=== PATIENT | female | born 1965 | race Caucasian/White ===

== ENCOUNTER 2017-06-14 14:01 | Emergency (ER) | payer MEDICAID ==
[~2017-06-14] VITALS: Ht 165.1 cm; Wt 55.0 kg
[~2017-06-14 14:01] MED LIST: CEFU1TAB43 PO; CITA20 PO; CYCL-36 PO; DIAZ10TA PO; DILA2TAB4 PO; FIORTAB4 PO; NEUR600T PO; OXYC30TA PO; PRAV40 PO; PRED20 PO; SALM50I INH; STOO100T PO; TUSSSUS PO
[2017-06-14 14:18] VITALS: BP 92/52; PULSE 70; RESP 18; TEMP 97.8; O2SAT 95
[2017-06-14 15:36] LABS: BACTERIA, URINE RARE /hpf; BILIRUBIN, URINE NEG (NEG); BLOOD, URINE LARGE (NEG); GLUCOSE,URINE NEG (NEG); KETONE, URINE 10 mg/dL (NEG); MUCUS URINE FEW /lpf (OCC); NITRITE,URINE POS (NEG); SQUAMOUS EPITHELIAL CELL URINE 8 /hpf (0-5); URINE LEUKOCYTE ESTERASE NEG (NEG)
[2017-06-14 15:37] LABS: URINE COLOR RED (YELLW/STRAW)
[2017-06-14] MEDS ORDERED: LIDOCAINE HCL 1% 50 ML VIAL IM ONE (18:00)
[2017-06-14] MEDS ORDERED: PHEN0.4T PO (18:05)
[2017-06-14] MEDS ORDERED: CEPH-460 PO (18:05)
--- NOTE | 2017-06-14 18:10 | PD ---
HPI Chief Complaint: Complaint Time Seen by Provider: 17:59 Travel History International Travel<30 days: No Contact w/Intl Traveler<30days: No Traveled to known affect area: No History of Present Illness HPI 51-year-old female presents to the emergency department with complaint of blood in her urine since last night. Denies dysuria, urinary frequency. Reports urinary hesitancy today. Reports subjective fever 2 days ago, but none yesterday or today. Denies abdominal pain, vomiting. Denies flank pain, back pain. Denies history of kidney stones. Denies abnormal vaginal discharge, odor. Has not taken any medications or try any treatments to alleviate her symptoms. No known aggravating or relieving factors. Allergies to aspirin and codeine. No primary care provider. History of COPD and seasonal allergies. Has no other medical complaints. No other modifying factors or associated signs or symptoms. PFSH Past Medical History Asthma: Yes Anxiety: Yes Cancer: No Cardiovascular Problems: No Congestive Heart Failure: No COPD: Yes Cerebrovascular Accident: Yes (TIA x 2) Coronary Artery Disease: No Diabetes: No Diminished Hearing: No Gastrointestinal Disorders: Yes (CHRONIC CONSTIPATION) Glaucoma: No Hepatitis: No Hiatal Hernia: No Hypertension: No Medical other: Yes (PREVIOUS ULCER) Musculoskeletal: Yes (BULGING DISCS IN BACK) Neurologic: Yes Respiratory: Yes (End Stage COPD & Enphysema) Immunizations Current: Yes Pneumonia: Yes Thyroid Disease: No Ulcer: Yes Tetanus Vaccination: > 5 Years ?: Not LMP: Does not get periods Ectopic : Yes (LEFT OOPRECTOMY) Tubal Ligation: Yes Past Surgical History Abdominal Surgery: No Appendectomy: No Cardiac Surgery: No Cholecystectomy: No Ear Surgery: No Endocrine Surgery: No Eye Surgery: No Genitourinary Surgery: No Gynecologic Surgery: Yes (LT FALLOPIAN TUBE, RT OVARY REMOVED 12 YRS AGO) Oral Surgery: No Pacemaker: No Thoracic Surgery: No Tonsillectomy: Yes Other Surgery: Yes Social History Alcohol Use: No Tobacco Use: Yes (1 ppd) Substance Use: Yes (MARIJUANA) Allergies-Medications (Allergen,Severity, Reaction): Coded Allergies: aspirin (Unverified Allergy, Severe, HIVES, 06/14/17) codeine (Unverified Allergy, Severe, Nausea/Vomiting, 06/14/17) Reported Meds & Prescriptions Reported Meds & Active Scripts Active Review of Systems Except as stated in HPI: all other systems reviewed are Neg Physical Exam Narrative GENERAL: Well-nourished, well-developed female patient, in no acute distress; afebrile, nontoxic-appearing SKIN: Warm and dry. No rash. HEAD: Atraumatic. Normocephalic. EYES: Pupils equal and round. No scleral icterus. No injection or drainage. ENT: Mucosa pink and moist. NECK: Trachea midline. CARDIOVASCULAR: Regular rate. RESPIRATORY: No accessory muscle use. GASTROINTESTINAL: Abdomen soft, non-tender, nondistended. Hepatic and splenic margins not palpable. Bowel sounds are active 4 quadrants. Bladder nontender and distended. MUSCULOSKELETAL: No obvious deformities. No clubbing. No cyanosis. No edema. BACK: No CVA tenderness NEUROLOGICAL: Awake and alert. Oriented 3. No obvious cranial nerve deficits. Motor grossly within normal limits. Normal speech. Moves all extremities. 5/5 strength to all extremities. PSYCHIATRIC: Appropriate mood and affect; insight and judgment normal. Data Data Last Documented VS Vital Signs Date Time Temp Pulse Resp B/P (MAP) Pulse Ox O2 Delivery O2 Flow Rate FiO2 06/14/17 14:18 97.8 70 18 92/52 (65) 95 Orders Orders Urinalysis - C+S If Indicated (06/14/17 15:05) Urine Culture (06/14/17 14:32) Lidocaine 1% Inj (50 Ml) (Xylocaine 1% I (06/14/17 18:00) Ceftriaxone Inj (Rocephin Inj) (06/14/17 18:00) Labs Laboratory Tests Test 06/14/17 14:32 Urine Color RED Urine Turbidity HAZY Urine pH 6.0 Urine Specific [place] 1.016 Urine Protein 30 mg/dL Urine Glucose (UA) NEG mg/dL Urine Ketones 10 mg/dL Urine Occult Blood LARGE Urine Nitrite POS Urine Bilirubin NEG Urine Urobilinogen 2.0 MG/DL Urine Leukocyte Esterase NEG Urine RBC /hpf Urine WBC 27 /hpf Urine Squamous Epithelial Cells 8 /hpf Urine Bacteria RARE /hpf Urine Mucus FEW /lpf Microscopic Urinalysis Comment CULTURE INDICATED MDM Medical Decision Making Medical Screen Exam Complete: Yes Emergency Medical Condition: Yes Medical Record Reviewed: Yes Differential Diagnosis UTI, pyelonephritis, bladder cancer, nephrolithiasis Narrative Course 51-year-old female with complaint of blood in her urine since last night. Her only complaint is urine hesitancy. She does have bladder tenderness and distention on exam. Otherwise exam is unremarkable. No CVA tenderness. Urinalysis with signs of infection and hematuria. Denies history of kidney stones. Rocephin administered in the ER. Instructed patient to follow-up with urologist. Keflex and Pyridium prescribed for home. Instructed patient to follow up with primary care provider. Patient verbalizes understanding and agreement with treatment plan. Patient is medically cleared and stable for discharge. Discussed reasons to return to the emergency department. Patient agrees with treatment plan. The patients vital signs are stable and the patient is stable for outpatient follow-up and treatment. Patient discharged home, stable and in no acute distress. Diagnosis Primary Impression: Urinary tract infection Qualified Codes: N39.0 - Urinary tract infection, site not specified; R31.9 - Hematuria, unspecified Referrals: Primary Care Physician Urologist Patient Instructions: General Instructions, Hematuria (ED), Urinary Tract Infection in Women (ED) Additional Instructions: Take antibiotics as prescribed and complete full course Take Pyridium for bladder spasms: Pyridium will turn your urine bright orange Drink plenty of fluids Maintain good personal hygiene Follow-up with primary care provider Return to the emergency department immediately with worsening of symptoms Med/Other Pt SpecificInfo: Prescription(s) given Scripts Cephalexin (Keflex) 500 Mg Cap 500 MG PO Q12H for Infection for 7 Days, #14 CAP 0 Refills Prov: Mary Marsh 06/14/17 Phenazopyridine (Pyridium) 100 Mg Tab 100 MG PO Q8H Y for DYSURIA for 3 Days, #9 TAB 0 Refills Prov: Mary Marsh 06/14/17 Disposition: 01 DISCHARGE HOME Condition: Stable Mary Marsh Jun 14, 2017 18:10
== END 2017-06-14 18:52 | disposition home or self-care (01) ==
LOC: NEPK 14:01
DX: N39.0 Urinary tract infection, site not specified (principal); R31.9 Hematuria, unspecified; F17.200 Nicotine dependence, unspecified, uncomplicated; F12.90 Cannabis use, unspecified, uncomplicated
CPT/HCPCS: 81001; 87086; 96372; 99283; J0696

== ENCOUNTER → 2017-08-10 | Day surgery (SDC) | payer MEDICAID ==
[~2017-08-10] VITALS: Ht 154.9 cm; Wt 52.1 kg
[~2017-08-10] MED LIST changes: +*MEPERIDINE 25 MG INJ VIAL PERIprocedural Use ONLY ONE; +*PROMETHAZINE 25 MG/ML VIAL PERIprocedural use ONLY ONE; +*morphine SULFATE 8 MG/ML PERIprocedure ONLY ONE; +AMPICILLIN 1 GM/NS 100 ML IV SCH; +BACT800T5 PO; +BELLADONNA ALKALOIDS/OPIUM 60 MG SUPP RECTAL ONE; +BUTA1CAP PO; -CEFU1TAB43 PO; +CELE40TA PO; +CHLORHEXIDINE GLUCONATE 2 % 1 PACK (2 CLOTHS) TOPICAL PRN; -CITA20 PO; -CYCL-36 PO; +CYCL10TA PO; +DEXAMETHASONE SOD PHOS 4 MG/ML VIAL IV ONE; +DIAZ10 PO; -DIAZ10TA PO; -DILA2TAB4 PO; +DO NOT ADM ANY ANTICOAGULANT DRUGS PRN; -FIORTAB4 PO; +GABA600T PO; +GENTAMICIN INJ 240 MG in SODIUM CHLORIDE 0.9% INJ 100 ML IV SCH; +HYDROmorphone HCL PF 0.5 MG/0.5 ML SYRINGE IV PRN; +KETAMINE HCL 50 MG/5 ML SYRINGE ONE; +LACTATED RINGER'S 1000 ML INJ 1,000 ML IV ONE; +LACTATED RINGER'S 1000 ML IV PRN; +LIDOCAINE HCL 1% PF 5 ML SYRINGE OTHER ONE; +METOPROLOL TARTRATE 25 MG TAB PO PRN; +MIDAZOLAM HCL 2 MG/2 ML VIAL ONE; +MORP20SO2 PO; +MULT-65 PO; -NEUR600T PO; +OMEP40CA2 PO; +ONDANSETRON HCL 4 MG/2 ML VIAL IV ONE; +ONDANSETRON HCL 4 MG/2 ML VIAL IV PUSH PRN; +ONDANSETRON HCL 4 MG/2 ML VIAL ONE; +POVIDONE IODINE 5% (ANTISEPSIS KIT) 4 APPLICATIONS EACH NARE PRN; -PRAV40 PO; +PROPOFOL 200 MG/20 ML AMP IV ONE; +RESP: ALBUTEROL CONC 2.5 MG/0.5 ML NEB ONE; -SALM50I INH; +SENN1TAB PO; +SODIUM CHLORID 0.9% 500 ML IV PRN; -STOO100T PO; +TRAM50TA PO; -TUSSSUS PO; +traMADol HCL 50 MG TAB PO PRN
[2017-08-10 07:24] LABS: AUTOMATED NEUTROPHIL # 3.6 TH/MM3 (1.8-7.7); BASOPHIL % 0.7 % (0.0-2.0); EOSINOPHIL # 0.1 TH/MM3 (0-0.4); EOSINOPHIL % 1.7 % (0.0-4.0); HEMATOCRIT 44.7 % (35.0-46.0); HEMOGLOBIN 15.5 GM/DL (11.6-15.3); LYMPH % 38.4 % (9.0-44.0); LYMPHOCYTE # 2.6 TH/MM3 (1.0-4.8); MEAN CELL VOLUME 88.3 FL (80.0-100.0); MEAN CORPUSCULAR HEMOGLOBIN 30.5 PG (27.0-34.0); MEAN CORPUSCULAR HGB CONC 34.6 % (32.0-36.0); MEAN PLATELET VOLUME 6.9 FL (7.0-11.0); MONO % 5.3 % (0.0-8.0); MONOCYTE # 0.4 TH/MM3 (0-0.9); NEUT % 53.9 % (16.0-70.0); PLATELET COUNT 270 TH/MM3 (150-450); RED BLOOD COUNT 5.06 MIL/MM3 (4.00-5.30); RED CELL DISTRIBUTION WIDTH 14.9 % (11.6-17.2); WHITE BLOOD COUNT 6.8 TH/MM3 (4.0-11.0)
--- NOTE | 2017-08-10 09:47 | PD.OP ---
Operative Report Date of Surgery: August 10, 2017 Preoperative Diagnosis: Gross hematuria with findings of right renal collecting system filling defects on CT scan Postoperative Diagnosis: Same Procedure: Cystoscopy with right retrograde pyelogram study, right ureteral dilatation with right ureteroscopy and biopsies of collecting system tumor; bladder biopsy 3 with fulguration Anesthesia: General LMA Surgeon: Foreign Ugarte Prestressed Concrete Laborer(s): None Resident Surgeon: None Operation and Findings: 51-year-old female with history of intermittent gross hematuria. CT scan demonstrated suggestion of a filling defect with mass within the right renal collecting system. Decision made to bring the patient to the operating room to undergo cystoscopy with right retrograde pyelogram study with right ureteroscopy and possible biopsy of collecting system mass. Risk and benefits were discussed preoperatively and she is willing to proceed. Patient was brought to the operating room and identified by myself as Carrie Temo. She is placed in the dorsal lithotomy position, prepped and draped in usual sterile fashion, received preprocedure antibiotics and general LMA anesthesia was administered. 22 Lao cystoscope was inserted in the bladder and tolbert cystoscopy demonstrated areas of erythema along the posterior and right lateral bladder wall. Using the cold cup biopsy forceps, the areas of erythema were biopsied and sent to pathology. The Bugbee cautery was then used to fulgurate these areas were biopsied. A 5 Lao opening catheter was inserted into the right distal ureteral orifice and retrograde pyelogram was performed. Filling defects were identified within the proximal ureter as well as the collecting system. Attempt was made to pass a ureteral access sheath but this was unsuccessful. Ureteral dilatation was performed using Microvasive ureteral dilators. Once that was completed, I was able to slide up the ureteral access sheath without difficulty. 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 2 biopsies were taken with the [place]aryana forceps. These were then sent to pathology. The 0.35 sensor wire was then passed up into the collecting system and ureteral access sheath was then removed. The cystoscope was then backloaded over the wire and a 6 Lao 22 cm right double-J stent was placed in left in good position. A string remained on the distal aspect of the stent and it was taped to the suprapubic region with Tegaderm. The patient tolerated the procedure well. She was awoken, extubated and transferred recovery room in stable condition. She will come to the office tomorrow to have the stent removed and will be scheduled for a hand-assisted laparoscopic right nephroureterectomy in the near future. She will most likely need follow-up with cystoscopy in the office. Foreign Ugarte DO August 10, 2017 09:47
[2017-08-10 11:19] VITALS: BP 101/59; PULSE 92; RESP 18; TEMP 98.2; O2SAT 92
--- NOTE | 2017-08-11 08:37 | EKG ---
Date Performed: 08/10/2017 Time Performed: 07:02:43 PTAGE: 51 years EKG: SUPRAVENTRICULAR RHYTHM OF UNDETERMINED ORGIN DUE TO BASELINE ARTIFACT PREVIOUS TRACING : 11/18/2014 16.18 DOCTOR: Fito Thompson Interpretating Date/Time 08/11/2017 08:35:25
== END | disposition home or self-care (01) ==
LOC: HSDC 06:19
PROVIDERS: ATTEND Urology
DX: R31.0 Gross hematuria (principal); R93.421 Abnormal radiologic findings on diagnostic imaging of right kidney; E78.5 Hyperlipidemia, unspecified; J44.9 Chronic obstructive pulmonary disease, unspecified; J45.909 Unspecified asthma, uncomplicated; F41.9 Anxiety disorder, unspecified; F32.9 Major depressive disorder, single episode, unspecified; Z01.810 Encounter for preprocedural cardiovascular examination
CPT/HCPCS: 00910; 52204; 52344; 74420; 85025; 88112; 88305; 93005; C1769; C2617; J0290; J1100; J2175; J2250; J2270; J2405; J2550; J3010; J7120; J7611

== ENCOUNTER 2017-08-14 10:07 | Emergency (ER) | payer MEDICAID ==
[~2017-08-14] VITALS: Ht 154.9 cm; Wt 50.0 kg
[~2017-08-14 10:07] MED LIST changes: -*MEPERIDINE 25 MG INJ VIAL PERIprocedural Use ONLY ONE; -*PROMETHAZINE 25 MG/ML VIAL PERIprocedural use ONLY ONE; -*morphine SULFATE 8 MG/ML PERIprocedure ONLY ONE; -AMPICILLIN 1 GM/NS 100 ML IV SCH; -BACT800T5 PO; -BELLADONNA ALKALOIDS/OPIUM 60 MG SUPP RECTAL ONE; -CHLORHEXIDINE GLUCONATE 2 % 1 PACK (2 CLOTHS) TOPICAL PRN; -DEXAMETHASONE SOD PHOS 4 MG/ML VIAL IV ONE; -DO NOT ADM ANY ANTICOAGULANT DRUGS PRN; -GENTAMICIN INJ 240 MG in SODIUM CHLORIDE 0.9% INJ 100 ML IV SCH; -HYDROmorphone HCL PF 0.5 MG/0.5 ML SYRINGE IV PRN; -KETAMINE HCL 50 MG/5 ML SYRINGE ONE; -LACTATED RINGER'S 1000 ML INJ 1,000 ML IV ONE; -LACTATED RINGER'S 1000 ML IV PRN; -LIDOCAINE HCL 1% PF 5 ML SYRINGE OTHER ONE; -METOPROLOL TARTRATE 25 MG TAB PO PRN; -MIDAZOLAM HCL 2 MG/2 ML VIAL ONE; -MORP20SO2 PO; -ONDANSETRON HCL 4 MG/2 ML VIAL IV ONE; -ONDANSETRON HCL 4 MG/2 ML VIAL IV PUSH PRN; -ONDANSETRON HCL 4 MG/2 ML VIAL ONE; -POVIDONE IODINE 5% (ANTISEPSIS KIT) 4 APPLICATIONS EACH NARE PRN; -PRED20 PO; -PROPOFOL 200 MG/20 ML AMP IV ONE; -RESP: ALBUTEROL CONC 2.5 MG/0.5 ML NEB ONE; -SODIUM CHLORID 0.9% 500 ML IV PRN; -TRAM50TA PO; -traMADol HCL 50 MG TAB PO PRN
[2017-08-14 10:49] VITALS: BP 146/55; PULSE 103; RESP 22; TEMP 98.5; O2SAT 93
[2017-08-14] MEDS ORDERED: SODIUM CHLOR 0.9% 1000 ML INJ 1,000 ML IV SCH (11:34)
[2017-08-14 11:37] VITALS: PULSE 90; RESP 24; O2SAT 97
[2017-08-14] MEDS ORDERED: SODIUM CHLORIDE 0.9% FLUSH 10 ML FLUSH IV FLUSH PRN (11:45)
[2017-08-14] MEDS ORDERED: HYDROmorphone HCL PF 1 MG/ML VIAL IVS ONE (11:45)
--- NOTE | 2017-08-14 11:50 | PD ---
HPI Chief Complaint: Pain: Acute or Chronic Time Seen by Provider: 11:18 Travel History International Travel<30 days: No Contact w/Intl Traveler<30days: No Traveled to known affect area: No History of Present Illness HPI 51-year-old female with PMH of HLD, COPD, presents the ED for evaluation of right flank pain. The patient recently underwent cystoscopy and stent placement. She states that the pain onset ~24 hours after stent removal. Pain is rated 10/10, described as stabbing. No alleviating or exacerbating factors reported. She states that "the right kidney is full of cancer and they are going to remove it." She denies fever or chills, nausea or vomiting. She states that she is still making a small amount of bloody urine. She treated at home with Percocet and muscle relaxants with no improvement of symptoms. PFSH Past Medical History Asthma: Yes Anxiety: Yes Cancer: No Cardiovascular Problems: No Congestive Heart Failure: No COPD: Yes Cerebrovascular Accident: Yes (TIA x 2) Coronary Artery Disease: No Diabetes: No Diminished Hearing: No Endocrine: No Gastrointestinal Disorders: Yes (CHRONIC CONSTIPATION) Glaucoma: No Genitourinary: No Hepatitis: No Hiatal Hernia: No Hypertension: No Immune Disorder: No Musculoskeletal: Yes (BULGING DISCS IN BACK, OA) Neurologic: Yes (SCIATICA, MIGRAINES, REVERSED CURVATURE OF THE SPINE) Psychiatric: Yes (ANXIETY AND DEPRESSION) Reproductive: No Respiratory: Yes (COPD) Immunizations Current: Yes Pneumonia: Yes Thyroid Disease: No Ulcer: Yes ?: Not Ectopic : Yes (LEFT OOPRECTOMY) Tubal Ligation: Yes Past Surgical History Abdominal Surgery: Yes (EXP LAP) AICD: No Appendectomy: No Body Medical Devices: RIGHT BREAST CLIP Cardiac Surgery: No Cholecystectomy: No Ear Surgery: No Endocrine Surgery: No Eye Surgery: No Genitourinary Surgery: No Gynecologic Surgery: Yes (LT FALLOPIAN TUBE, RT OVARY REMOVED 12 YRS AGO) Joint Replacement: No Oral Surgery: No Pacemaker: No Thoracic Surgery: No Tonsillectomy: Yes Other Surgery: Yes Social History Alcohol Use: No Tobacco Use: Yes (2 ppd) Substance Use: Yes (MARIJUANA) Allergies-Medications (Allergen,Severity, Reaction): Coded Allergies: aspirin (Unverified Allergy, Severe, HIVES, 08/14/17) codeine (Unverified Allergy, Severe, Nausea/Vomiting, 08/14/17) Reported Meds & Prescriptions Reported Meds & Active Scripts Active Prednisone 20 Mg Tab 20 Mg PO DAILY Bactrim DS (Sulfamethoxazole-Trimethoprim) 800-160 Mg Tab 1 Tab PO BID Reported Morphine Liq (Morphine Sulfate) 20 Mg/Ml Liq 10 Mg PO DAILY PRN Tramadol (Tramadol HCl) 50 Mg Tab 50 Mg PO Q4H PRN Multi-Vitamin Daily (Multiple Vitamin) 1 Tab Tab 1 Tab PO DAILY Celexa (Citalopram Hydrobromide) 40 Mg Tab 40 Mg PO DAILY Gabapentin 600 Mg Tab 600 Mg PO BID Valium (Diazepam) 10 Mg Tab 10 Mg PO BID Senna-Plus (Sennosides-Docusate Sodium) 8.6-50 Mg Tab 1 Tab PO DAILY Fioricet (Rgtinckdaa-Azkooqnlmmosw-Bfyrjncz) 50-300-40 Mg Cap 1-2 Cap PO Q6H PRN Flexeril (Cyclobenzaprine HCl) 10 Mg Tab 10 Mg PO BID Omeprazole 40 Mg Cap 40 Mg PO DAILY Oxycodone (Oxycodone HCl) 30 Mg Tab 30 Mg PO Q6HR Review of Systems Except as stated in HPI: all other systems reviewed are Neg Physical Exam Narrative GENERAL: Well-nourished, well-developed thin, anxious white female no acute distress. SKIN: Focused skin assessment warm/dry. HEAD: Normocephalic. EYES: No scleral icterus. No injection or drainage. NECK: Supple, trachea midline. No JVD or lymphadenopathy. CARDIOVASCULAR: Regular rate and rhythm without murmurs, gallops, or rubs. RESPIRATORY: Breath sounds clear and equal bilaterally. No accessory muscle use. GASTROINTESTINAL: Abdomen soft, nondistended. Tender to palpation in the right lower quadrant, right flank. MUSCULOSKELETAL: No cyanosis, or edema. BACK: Nontender without obvious deformity. Positive right-sided CVA tenderness. Data Data Last Documented VS Vital Signs Date Time Temp Pulse Resp B/P (MAP) Pulse Ox O2 Delivery O2 Flow Rate FiO2 08/14/17 11:37 90 24 97 Room Air 08/14/17 10:49 98.5 146/55 (85) Orders Orders Complete Blood Count With Diff (08/14/17 11:34) Comprehensive Metabolic Panel (08/14/17 11:34) Lactic Acid (08/14/17 11:34) Prothrombin Time / Inr (Pt) (08/14/17 11:34) Act Partial Throm Time (Ptt) (08/14/17 11:34) Urinalysis - C+S If Indicated (08/14/17 11:34) Iv Access Insert/Monitor (08/14/17 11:34) Ecg Monitoring (08/14/17 11:34) Oximetry (08/14/17 11:34) Sodium Chlor 0.9% 1000 Ml Inj (Ns 1000 M (08/14/17 11:34) Sodium Chloride 0.9% Flush (Ns Flush) (08/14/17 11:45) Hydromorphone Pf Inj (Dilaudid Pf Inj) (08/14/17 11:45) Hydromorphone Pf Inj (Dilaudid Pf Inj) (08/14/17 12:15) Urine Culture (08/14/17 11:52) Hydromorphone Pf Inj (Dilaudid Pf Inj) (08/14/17 12:30) Sulfamet-Trimeth Ds 800-160 Mg (Bactrim (08/14/17 13:15) Dexamethasone Inj (Decadron Inj) (08/14/17 13:15) Ed Discharge Order (08/14/17 13:36) Labs Laboratory Tests Test 08/14/17 11:45 08/14/17 11:52 White Blood Count 7.3 TH/MM3 Red Blood Count 4.90 MIL/MM3 Hemoglobin 14.7 GM/DL Hematocrit 43.4 % Mean Corpuscular Volume 88.5 FL Mean Corpuscular Hemoglobin 29.9 PG Mean Corpuscular Hemoglobin Concent 33.8 % Red Cell Distribution Width 14.9 % Platelet Count 255 TH/MM3 Mean Platelet Volume 6.9 FL Neutrophils (%) (Auto) 61.1 % Lymphocytes (%) (Auto) 29.4 % Monocytes (%) (Auto) 7.8 % Eosinophils (%) (Auto) 1.3 % Basophils (%) (Auto) 0.4 % Neutrophils # (Auto) 4.5 TH/MM3 Lymphocytes # (Auto) 2.2 TH/MM3 Monocytes # (Auto) 0.6 TH/MM3 Eosinophils # (Auto) 0.1 TH/MM3 Basophils # (Auto) 0.0 TH/MM3 CBC Comment DIFF FINAL Differential Comment Prothrombin Time 10.0 SEC Prothromb Time International Ratio 1.0 RATIO Activated Partial Thromboplast Time 28.1 SEC Blood Urea Nitrogen 9 MG/DL Creatinine 1.00 MG/DL Random Glucose 92 MG/DL Total Protein 6.7 GM/DL Albumin 3.3 GM/DL Calcium Level 8.4 MG/DL Alkaline Phosphatase 142 U/L Aspartate Amino Transf (AST/SGOT) 9 U/L Alanine Aminotransferase (ALT/SGPT) 16 U/L Total Bilirubin 0.3 MG/DL Sodium Level 140 MEQ/L Potassium Level 3.8 MEQ/L Chloride Level 103 MEQ/L Carbon Dioxide Level 30.8 MEQ/L Anion Gap 6 MEQ/L Estimat Glomerular Filtration Rate 58 ML/MIN Lactic Acid Level 1.0 mmol/L Urine Color DARK-BROWN Urine Turbidity HAZY Urine pH 6.5 Urine Specific [place] 1.018 Urine Protein 300 mg/dL Urine Glucose (UA) NEG mg/dL Urine Ketones NEG mg/dL Urine Occult Blood LARGE Urine Nitrite NEG Urine Bilirubin NEG Urine Urobilinogen 2.0 MG/DL Urine Leukocyte Esterase LARGE Urine RBC /hpf Urine WBC /hpf Urine Squamous Epithelial Cells 1 /hpf Urine Bacteria OCC /hpf Microscopic Urinalysis Comment CULTURE INDICATED MDM Medical Decision Making Medical Screen Exam Complete: Yes Emergency Medical Condition: Yes Differential Diagnosis Renal CA versus nephroureterolithiasis versus bladder perforation versus TCC versus other Narrative Course 51-year-old female with PMH of HLD, COPD, chronic pain presents the ED for evaluation of right flank pain. The patient recently underwent cystoscopy and stent placement. She states that the pain onset ~24 hours after stent removal. She states that "the right kidney is full of cancer and they are going to remove it." Patient is afebrile, tachycardic in triage. On exam the patient is tearful. There is right CVA and flank tenderness. Exam otherwise unremarkable. IV established. Patient was administered 1 L normal saline, 1 mg Dilaudid IV. Heart rate improved to 90, O2 sats 97% on room air on recheck. CBC: No leukocytosis or anemia. Coags within normal limits. CMP: Mild hypocalcemia, otherwise unremarkable. Lactic acid 1.0. UA: Dark brown, large occult blood, large leukocyte Estrace, innumerable WBCs, occasional bacteria. Culture pending. I spoke with Dr. Ugarte. Outpatient bladder biopsy still pending at this time. He does not recommend any additional imaging. He recommends pain control, dose of IV steroids, initiation of Bactrim. He will follow with the patient after biopsies return. Patient continues to complain of pain and was administered 1 mg Dilaudid, 4 mg Decadron IV and first dose of Bactrim in the ED. She is prescribed Bactrim DS twice daily 3 days, 20 mg prednisone to be initiated tomorrow. Patient states pain is improved, is eager to leave. She states her granddaughter needs to go home. She understands she should return if symptoms worsen, otherwise follow with Dr. Ugarte as planned. She is stable and discharged home. Diagnosis Primary Impression: Chronic pain Qualified Codes: G89.29 - Other chronic pain Additional Impression: Urinary tract infection Qualified Codes: N30.01 - Acute cystitis with hematuria Referrals: Foreign Ugarte DO Additional Instructions: Rest, hydrate. Begin antibiotics today and take them until every pill is gone. Resume at home medications as previously prescribed. Follow-up with Dr. Ugarte as planned. Return to the ED for any urgent or emergent medical condition. Med/Other Pt SpecificInfo: Prescription(s) given Scripts Prednisone (Prednisone) 20 Mg Tab 20 MG PO DAILY, #3 TAB 0 Refills Prov: Fabiana Kelly MD 08/14/17 Sulfamethoxazole-Trimethoprim (Bactrim DS) 800-160 Mg Tab 1 TAB PO BID for Infection, #6 TAB 0 Refills Prov: Fabiana Kelly MD 08/14/17 Disposition: DISCHARGE HOME Condition: Stable Ritu Coronado Aug 14, 2017 11:50
[2017-08-14 11:59] LABS: AUTOMATED NEUTROPHIL # 4.5 TH/MM3 (1.8-7.7); BASOPHIL % 0.4 % (0.0-2.0); EOSINOPHIL # 0.1 TH/MM3 (0-0.4); EOSINOPHIL % 1.3 % (0.0-4.0); HEMATOCRIT 43.4 % (35.0-46.0); HEMOGLOBIN 14.7 GM/DL (11.6-15.3); LYMPH % 29.4 % (9.0-44.0); LYMPHOCYTE # 2.2 TH/MM3 (1.0-4.8); MEAN CELL VOLUME 88.5 FL (80.0-100.0); MEAN CORPUSCULAR HEMOGLOBIN 29.9 PG (27.0-34.0); MEAN CORPUSCULAR HGB CONC 33.8 % (32.0-36.0); MEAN PLATELET VOLUME 6.9 FL (7.0-11.0); MONO % 7.8 % (0.0-8.0); MONOCYTE # 0.6 TH/MM3 (0-0.9); NEUT % 61.1 % (16.0-70.0); PLATELET COUNT 255 TH/MM3 (150-450); RED CELL DISTRIBUTION WIDTH 14.9 % (11.6-17.2); WHITE BLOOD COUNT 7.3 TH/MM3 (4.0-11.0)
[2017-08-14 12:12] LABS: BACTERIA, URINE OCC /hpf; BILIRUBIN, URINE NEG (NEG); BLOOD, URINE LARGE (NEG); GLUCOSE,URINE NEG (NEG); KETONE, URINE NEG (NEG); NITRITE,URINE NEG (NEG); PH, URINE 6.5 (5.0-8.5); SQUAMOUS EPITHELIAL CELL URINE 1 /hpf (0-5); URINE LEUKOCYTE ESTERASE LARGE (NEG)
[2017-08-14 12:13] LABS: URINE COLOR DARK-BROWN (YELLW/STRAW)
[2017-08-14] MEDS ORDERED: HYDROmorphone HCL PF 2 MG/ML VIAL IV PUSH ONE ×2 (12:15→12:30)
[2017-08-14 12:24] LABS: ALBUMIN 3.3 GM/DL (3.4-5.0); BICARBONATE 30.8 MEQ/L (21.0-32.0); BLOOD UREA NITROGEN 9 MG/DL (7-18); CALCIUM 8.4 MG/DL (8.5-10.1); CHLORIDE 103 MEQ/L (98-107); GLOMERULAR FILTRATION RATE 58 ML/MIN (>89); GLUCOSE,RANDOM 92 MG/DL (74-106); SODIUM (NA) 140 MEQ/L (136-145)
[2017-08-14 12:25] LABS: ALT (GPT) 16 U/L (10-53)
[2017-08-14 12:33] LABS: ALKALINE PHOSPHATASE 142 U/L (45-117); AST (GOT) 9 U/L (15-37); TOTAL BILIRUBIN ADULT 0.3 MG/DL (0.2-1.0); TOTAL PROTEIN 6.7 GM/DL (6.4-8.2)
[2017-08-14] MEDS ORDERED: TRAM50TA PO (13:00)
[2017-08-14] MEDS ORDERED: MORP20SO2 PO (13:02)
[2017-08-14] MEDS ORDERED: SULFAMETHOXAZOLE-TRIMETHOPRIM DS 800-160 MG TAB PO ONE (13:15)
[2017-08-14] MEDS ORDERED: DEXAMETHASONE SOD PHOS 4 MG/ML VIAL IV PUSH ONE (13:15)
[2017-08-14] MEDS ORDERED: BACT800T5 PO (13:25)
[2017-08-14] MEDS ORDERED: PRED20 PO (13:42)
--- NOTE | 2017-08-15 18:50 | PD ---
Physical Exam Narrative I, Dr. Kelly, have reviewed the mid-level providers documentation, met with the patient [id number], made the diagnosis and did medical decision making with the mid-level provider. See the mid-level provider note for full history, physical, and disposition. My assessment and findings: Patient presents to the emergency department complaining of right flank pain. She has a history of cystoscopy and stent placement. Advises that she has right renal cancer. Patient states that she developed pain after the stent removal and has had hematuria. Her pain is not responding to Percocet. Afebrile, slightly tachycardic in triage, slightly hypertensive at 146/55, remaining vital signs stable. Patient was placed on a cardiac monitor technician, IV access was obtained, and labs were sent. Patient also given IV fluids and IV pain medication. Labs showed urine with blood, leukocyte esterase, and bacteria. Creatinine was normal. The mid-level provider spoke to the patient's urologist who recommended pain meds, IV steroids , and Bactrim and follow-up with him. Patient's urine culture is pending. Data Data Last Documented VS Vital Signs Date Time Temp Pulse Resp B/P (MAP) Pulse Ox O2 Delivery O2 Flow Rate FiO2 08/14/17 11:37 90 24 97 Room Air 08/14/17 10:49 98.5 146/55 (85) Orders Orders Complete Blood Count With Diff (08/14/17 11:34) Comprehensive Metabolic Panel (08/14/17 11:34) Lactic Acid (08/14/17 11:34) Prothrombin Time / Inr (Pt) (08/14/17 11:34) Act Partial Throm Time (Ptt) (08/14/17 11:34) Urinalysis - C+S If Indicated (08/14/17 11:34) Iv Access Insert/Monitor (08/14/17 11:34) Ecg Monitoring (08/14/17 11:34) Oximetry (08/14/17 11:34) Sodium Chlor 0.9% 1000 Ml Inj (Ns 1000 M (08/14/17 11:34) Sodium Chloride 0.9% Flush (Ns Flush) (08/14/17 11:45) Hydromorphone Pf Inj (Dilaudid Pf Inj) (08/14/17 11:45) Hydromorphone Pf Inj (Dilaudid Pf Inj) (08/14/17 12:15) Urine Culture (08/14/17 11:52) Hydromorphone Pf Inj (Dilaudid Pf Inj) (08/14/17 12:30) Sulfamet-Trimeth Ds 800-160 Mg (Bactrim (08/14/17 13:15) Dexamethasone Inj (Decadron Inj) (08/14/17 13:15) Ed Discharge Order (08/14/17 13:36) Labs Laboratory Tests Test 08/14/17 11:45 08/14/17 11:52 White Blood Count 7.3 TH/MM3 Red Blood Count 4.90 MIL/MM3 Hemoglobin 14.7 GM/DL Hematocrit 43.4 % Mean Corpuscular Volume 88.5 FL Mean Corpuscular Hemoglobin 29.9 PG Mean Corpuscular Hemoglobin Concent 33.8 % Red Cell Distribution Width 14.9 % Platelet Count 255 TH/MM3 Mean Platelet Volume 6.9 FL Neutrophils (%) (Auto) 61.1 % Lymphocytes (%) (Auto) 29.4 % Monocytes (%) (Auto) 7.8 % Eosinophils (%) (Auto) 1.3 % Basophils (%) (Auto) 0.4 % Neutrophils # (Auto) 4.5 TH/MM3 Lymphocytes # (Auto) 2.2 TH/MM3 Monocytes # (Auto) 0.6 TH/MM3 Eosinophils # (Auto) 0.1 TH/MM3 Basophils # (Auto) 0.0 TH/MM3 CBC Comment DIFF FINAL Differential Comment Prothrombin Time 10.0 SEC Prothromb Time International Ratio 1.0 RATIO Activated Partial Thromboplast Time 28.1 SEC Blood Urea Nitrogen 9 MG/DL Creatinine 1.00 MG/DL Random Glucose 92 MG/DL Total Protein 6.7 GM/DL Albumin 3.3 GM/DL Calcium Level 8.4 MG/DL Alkaline Phosphatase 142 U/L Aspartate Amino Transf (AST/SGOT) 9 U/L Alanine Aminotransferase (ALT/SGPT) 16 U/L Total Bilirubin 0.3 MG/DL Sodium Level 140 MEQ/L Potassium Level 3.8 MEQ/L Chloride Level 103 MEQ/L Carbon Dioxide Level 30.8 MEQ/L Anion Gap 6 MEQ/L Estimat Glomerular Filtration Rate 58 ML/MIN Lactic Acid Level 1.0 mmol/L Urine Color DARK-BROWN Urine Turbidity HAZY Urine pH 6.5 Urine Specific [place] 1.018 Urine Protein 300 mg/dL Urine Glucose (UA) NEG mg/dL Urine Ketones NEG mg/dL Urine Occult Blood LARGE Urine Nitrite NEG Urine Bilirubin NEG Urine Urobilinogen 2.0 MG/DL Urine Leukocyte Esterase LARGE Urine RBC /hpf Urine WBC /hpf Urine Squamous Epithelial Cells 1 /hpf Urine Bacteria OCC /hpf Microscopic Urinalysis Comment CULTURE INDICATED MDM Supervised Visit with MARIA ELENA: Yes Diagnosis Primary Impression: Chronic pain Qualified Codes: G89.29 - Other chronic pain Additional Impression: Urinary tract infection Qualified Codes: N30.01 - Acute cystitis with hematuria Referrals: Foreign Ugarte DO Patient Instructions: General Instructions Departure Forms: Tests/Procedures Additional Instruction: Rest, hydrate. Begin antibiotics today and take them until every pill is gone. Resume at home medications as previously prescribed. Follow-up with Dr. Ugarte as planned. Return to the ED for any urgent or emergent medical condition. Med/Other Pt SpecificInfo: Prescription(s) given Scripts Prednisone (Prednisone) 20 Mg Tab 20 MG PO DAILY, #3 TAB 0 Refills Prov: Fabiana Kelly MD 08/14/17 Sulfamethoxazole-Trimethoprim (Bactrim DS) 800-160 Mg Tab 1 TAB PO BID for Infection, #6 TAB 0 Refills Prov: Fabiana Kelly MD 08/14/17 Disposition: 01 DISCHARGE HOME Condition: Stable Fabiana Kelly MD Aug 15, 2017 18:50
== END 2017-08-14 14:12 | disposition home or self-care (01) ==
LOC: NEPC 10:07
DX: G89.29 Other chronic pain (principal); N30.01 Acute cystitis with hematuria; F17.200 Nicotine dependence, unspecified, uncomplicated; F12.90 Cannabis use, unspecified, uncomplicated
CPT/HCPCS: 80053; 81001; 83605; 85025; 85610; 85730; 87086; 96374; 96375; 99284; J1100; J1170; J7030